=== PATIENT | female | born 1965 | race Caucasian/White ===

== ENCOUNTER 2020-02-12 08:37 | Outpatient (CLI) | payer OTHER, MEDICARE, SELFPAY ==
[2020-02-12 18:40] LABS: SARS-CoV-2 RNA PCR Negative
== END 2020-02-12 08:38 | disposition home or self-care (01) ==
LOC: ANHCOVIDDT 08:38
PROVIDERS: PCP Family Medicine; Visit Provider Orthopaedic Surgery
DX: Z01.812 Encounter for preprocedural laboratory examination (principal); Z20.828 Contact with and (suspected) exposure to other viral communicable diseases
CPT/HCPCS: 87635; C9803; U0003

== ENCOUNTER 2020-02-14 02:21 | Day surgery (SDC) | payer OTHER, MEDICARE, SELFPAY ==
[2019-12-13 13:44] VITALS: BMI 34.3
[2020-02-08 09:00] VITALS: BMI 31.8
--- NOTE | 2020-02-13 12:04 | WPDANESEPPF ---
Anes - Initial Pre Proc Eval Procedure: Operation Date: 02/14/20 07:30 Proposed Procedures p Bilateral Hallux Nail Removal - Dougie Munson MD Date/Time: 02/13/20 12:04 Surgeon: Dougie Munson MD Pre Op Diagnosis: Bilateral Hallux Onychomycosis [place] Toes Patient Data Age: 54 Gender: F Height: 5 ft 4 in Weight: 84 kg Allergies Allergy/AdvReac Type Severity Reaction Status Date / Time No Known Allergies Allergy Unknown Verified 02/06/20 11:35 Home Medications Medication Instructions Recorded Confirmed Type aspirin 81 mg tablet,delayed 81 mg PO DAILY 08/17/19 12/13/19 History release fluoxetine 40 mg capsule 120 mg PO DAILY 08/17/19 12/13/19 History gabapentin 300 mg capsule 900 mg PO TID cap 08/17/19 12/13/19 History venlafaxine 37.5 mg 37.5 mg PO DAILY 08/17/19 12/13/19 History capsule,extended release 24 hr acetaminophen [Tylenol Extra 500 mg PO Q6H PRN 12/13/19 12/13/19 History Strength] tapentadol [Nucynta ER] 100 mg PO BID 12/13/19 12/13/19 History ropinirole 6 mg tablet,extended 6 mg PO DAILY #30 tablet 01/17/20 02/08/20 Rx release 24 hr nitrofurantoin 100 mg PO BID #60 cap 01/28/20 02/08/20 Rx monohydrate/macrocrystals 100 mg capsule ibuprofen 800 mg tablet 800 mg PO TID #90 tablet 02/04/20 02/08/20 Rx carbamazepine [Tegretol XR] 400 mg PO Q12H 02/08/20 02/08/20 History Patient hx anesthesia problems: none Family hx anesthesia problems: none PMFSH Social History Social History Smoking status: Former smoker Second hand tobacco smoke exposure: No Smoking end date: 09/26/86 Alcohol intake: never Gender identity (if verbalized by the patient): Female Anes - Eval Final PreProcedure Day of Procedure 02/13/20 12:04 Patient weight: overweight Heart: regular rate and rhythm Lungs: clear to auscultation Airway: Mallampati scale class II Neurological: alert and oriented Last oral intake: >/= 8 hours ASA classification: III Emergent: no Anesthetic plan: proceed Anesthesia type and monitoring: general GIVS and standard monitoring Informed Consent: The patient's anesthetic plan and its attendant risks and benefits were discussed with the patient/family/POA. Questions were solicited and answers provided to the satisfaction of the patient/family/POA.
[2020-02-14 06:30] VITALS: BP 148/71; PULSE 79; RESP 16; TEMP 36.7; O2SAT 97
[2020-02-14] MEDS: LACTATED RINGERS 1,000 ML 30 ML IV CONT (06:50)
--- NOTE | 2020-02-14 06:51 | WPDHPUPDATE1 ---
History and Physical Update Update Date/Time: 02/14/20 06:51 History and Physical has been reviewed, including an updated exam of the patient. There are NO changes in the patient's condition. Risks, benefits, and alternatives have been discussed and questions answered. Patient agrees to proceed with procedure.
[2020-02-14] MEDS: ceFAZolin 2 GM/D5W 50 ML 2 GM/50 ML BAG IVPB (07:38)
[2020-02-14] MEDS: LIDOCAINE HCL 2% LOCAL INJ 20 ML VIAL INFILTRATE (07:56)
--- NOTE | 2020-02-14 08:11 | SUR.OPER ---
Ebl=5ml
[2020-02-14 08:17] VITALS: BP 120/62; PULSE 73; RESP 14; O2SAT 96
[2020-02-14 08:30] VITALS: BP 141/75; PULSE 72; RESP 14
[2020-02-14 09:00] VITALS: BP 159/90; PULSE 69; RESP 14
--- NOTE | 2020-02-14 09:26 | PM.PROC ---
Procedure Note - Detailed Date of procedure: 02/14/20 Pre-op diagnosis: Bilateral Hallux Onychomycosis To[place] Great Toes Post-op diagnosis: same Procedure performed: removal of toenail bilateral hallux Description of procedure: Indications: Patient is a 54-year-old woman with bilateral lower extremity neuropathy. Changes of the hallux toenail bilaterally consistent with fungal infection which is unrelieved with conservative care and antifungal medication. Presents for toenail removal. What was done: Patient identified in the preoperative holding. Informed consent given. Operative extremity marked. Patient received intravenous antibiotics. Patient brought to the operating room where underwent Sedation anesthetic by anesthesia team. Positioned supine on operating room table. Time-out performed confirming the patient, site of the surgery and the plan. right and left foot prepped and draped in usual sterile surgical fashion using a ChloraPrep skin solution. Left toenail addressed 1st. Local anesthetic with 0.5% Marcaine plain done at the base of the hallux. Point Clear elevator used to elevate the soft tissue from above and below the hallux toenail in the nail fold. Nail then grasped and removed. Loose tissue debrided with rongeur. Thorough irrigation. Sterile dressing with antibiotic ointment applied. Toenails of the lesser toes trimmed with nail trim. Right hallux toenail addressed 2nd. Local anesthetic with 0.5% Marcaine plain done at the base of the hallux. Point Clear elevator used to elevate the soft tissue from above and below the hallux toenail in the nail fold. Nail then grasped and removed. Loose tissue debrided with rongeur. Thorough irrigation. Sterile dressing with antibiotic ointment applied. Toenails of the lesser toes trimmed with nail trim. The patient was then woken from anesthesia, extubated and taken to the recovery room in stable condition. All sponge, needle, instrument counts were correct at the end of the case. Implants: 0 Anesthesia: MAC and local ( 0.5% Marcaine plain) Surgeon: Dougie Munson MD Estimated blood loss (mL): 5 Drains: No Packing: No Pathology: none sent Complications: None Condition: stable Disposition: PACU
[2020-02-14 09:30] VITALS: BP 145/77; PULSE 68; RESP 14
[2020-02-14 10:00] VITALS: BP 138/74; PULSE 72; RESP 14
--- NOTE | 2020-02-14 14:58 | SUR.PHASEII ---
1000 at side to assist with drsg..
[2020-02-20 16:14] LABS: Carbamazepine Tegretol 9.4 mcg/mL (4.0-12.0)
== END 2020-02-14 10:15 | disposition home or self-care (01) ==
PROVIDERS: PCP Family Medicine; Visit Provider Orthopaedic Surgery
PROC: 0HBRXZZ Excision of Toe Nail, External Approach (ICD-10-PCS; CPT 11750; principal; 2020-02-14 07:30)
DX: B35.1 Tinea unguium (principal); G62.9 Polyneuropathy, unspecified; I10 Essential (primary) hypertension; K21.9 Gastro-esophageal reflux disease without esophagitis; F41.8 Other specified anxiety disorders; D64.9 Anemia, unspecified; G47.30 Sleep apnea, unspecified; Z98.84 Bariatric surgery status; Z79.82 Long term (current) use of aspirin; Z86.718 Personal history of other venous thrombosis and embolism; Z87.891 Personal history of nicotine dependence
CPT/HCPCS: 11730; 11732; 36415; 80156; A9270; J0690; J2250; J2704; J3010; J7120

== ENCOUNTER → 2021-09-05 01:10 | Outpatient (CLI) | payer OTHER, MEDICARE, SELFPAY ==
[2021-09-05 20:10] LABS: SARS-CoV-2 RNA PCR Negative
== END ==
PROVIDERS: PCP Family Medicine; Visit Provider Internal Medicine Gastroenterology
DX: Z01.812 Encounter for preprocedural laboratory examination (principal); Z20.822 Contact with and (suspected) exposure to COVID-19
CPT/HCPCS: C9803; U0003; U0005

== ENCOUNTER 2021-09-09 01:05 | Day surgery (SDC) | payer OTHER, MEDICARE, SELFPAY ==
[2021-09-03 08:55] VITALS: BMI 36.0
--- NOTE | 2021-09-08 12:55 | PM.HPGS ---
History of Present Illness History of Present Illness Consent: Risks, benefits, and alternatives have been discussed and questions answered. Patient agrees to proceed with procedure. 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 Ankle fracture, left Anxiety Arthritis BMI 31.0-31.9,adult BMI 37.0-37.9, adult Cellulitis of toe, left Chronic anemia Depression Dialysis patient DVT (deep venous thrombosis) Endometriosis Gallbladder disease GERD (gastroesophageal reflux disease) HTN (hypertension) Onychomycosis of left great toe Onychomycosis of right great toe Ovarian cyst Peripheral neuropathy Recurrent UTI Screen for colon cancer Screening mammogram for high-risk patient Sleep apnea Trigger finger, left middle finger UTI (urinary tract infection) Surgical History Surgical History H/O left wrist surgery ORIF History of hysterectomy Hx of appendectomy Hx of cholecystectomy Hx of gastric bypass Family History Family History Father Cerebrovascular accident Mother Family history of malignant neoplasm of thyroid Sibling Family history of pancreatic cancer Other Diabetes mellitus Family history of malignant neoplasm Family history of malignant neoplasm of breast Family history of malignant neoplasm of male breast Hypertension Social History Social History Smoking packs per day: 1 Smoking cigarettes per day: 20.0 Years smoked: 8 Smoking pack-years: 8.00 Smoking status: Former smoker Tobacco type: cigarettes Second hand tobacco smoke exposure: No Smoking end date: 09/26/86 Additional smoking assessment comments: smoked for 8 years, started with 1pk/day by the end smoked 3pk/day Alcohol intake: never Substance use: never Substance use type: does not use Living arrangements: alone Gender identity (if verbalized by the patient): Female Spiritual care concerns: No Meds Home Medications and Allergies Home Medications Medication Instructions Recorded Confirmed Type fluoxetine 40 mg capsule 120 mg PO DAILY 08/17/19 09/09/21 History venlafaxine 37.5 mg 37.5 mg PO DAILY 08/17/19 09/09/21 History capsule,extended release 24 hr Nucynta ER 100 mg PO BID 12/13/19 09/09/21 History acetaminophen [Tylenol Extra 500 mg PO Q6H PRN 12/13/19 09/09/21 History Strength] nitrofurantoin 100 mg PO BID #60 cap 07/14/21 09/09/21 Rx monohydrate/macrocrystals 100 mg capsule carbamazepine 200 mg 400 mg PO Q12H #180 tablet 07/23/21 09/09/21 Rx tablet,extended release,12 hr gabapentin 300 mg capsule 900 mg PO TID #810 cap 09/02/21 09/09/21 Rx ibuprofen 800 mg PO TID 09/09/21 09/09/21 History ropinirole 6 mg PO DAILY 09/09/21 09/09/21 History Allergies Allergy/AdvReac Type Severity Reaction Status Date / Time No Known Allergies Allergy Unknown Verified 09/09/21 08:06 Exam Resp: Auscultation: clear to auscultation bilaterally Cardio: Rate: regular rate Rhythm: regular rhythm GI: GI Palp: Yes Soft to palpation and No Tenderness to palpation present (GI) Assessment and Plan Assessment and plan (1) Screen for colon cancer: Code(s): Z12.11 - Encounter for screening for malignant neoplasm of colon Status: Acute Assessment and Plan: Colonoscopy with possible biopsy or polypectomy or cautery or injection of substances.
[2021-09-09 08:08] VITALS: BP 144/80; PULSE 93; RESP 18; TEMP 36.1; O2SAT 97
[2021-09-09] MEDS: LACTATED RINGERS 1,000 ML 150 ML IV CONT (08:11)
--- NOTE | 2021-09-09 08:24 | WPDANESEPPF ---
Anes - Initial Pre Proc Eval Procedure: Operation Date: 09/09/21 09:45 Proposed Procedures p Screening Colonoscopy - Vish Pimentel MD Date/Time: 09/09/21 08:24 Surgeon: Vish Pimentel MD Pre Op Diagnosis: neoplasm screening Patient Data Age: 56 Gender: F Height: 1.63 m Weight: 99.9 kg Last Vital Signs Temp 36.1 C L 09/09/21 08:08 Pulse 93 09/09/21 08:08 Resp 18 09/09/21 08:08 BP 144/80 H 09/09/21 08:08 Pulse Ox 97 09/09/21 08:08 Allergies Allergy/AdvReac Type Severity Reaction Status Date / Time No Known Allergies Allergy Unknown Verified 09/09/21 08:06 Home Medications Medication Instructions Recorded Confirmed Type fluoxetine 40 mg capsule 120 mg PO DAILY 08/17/19 09/09/21 History venlafaxine 37.5 mg 37.5 mg PO DAILY 08/17/19 09/09/21 History capsule,extended release 24 hr Nucynta ER 100 mg PO BID 12/13/19 09/09/21 History acetaminophen [Tylenol Extra 500 mg PO Q6H PRN 12/13/19 09/09/21 History Strength] nitrofurantoin 100 mg PO BID #60 cap 07/14/21 09/09/21 Rx monohydrate/macrocrystals 100 mg capsule carbamazepine 200 mg 400 mg PO Q12H #180 tablet 07/23/21 09/09/21 Rx tablet,extended release,12 hr gabapentin 300 mg capsule 900 mg PO TID #810 cap 09/02/21 09/09/21 Rx ibuprofen 800 mg PO TID 09/09/21 09/09/21 History ropinirole 6 mg PO DAILY 09/09/21 09/09/21 History Patient hx anesthesia problems: none Family hx anesthesia problems: none Results Review: All pre-operative results and documents have been reviewed as part of the pre-operative evaluation. 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 Ankle fracture, left Anxiety Arthritis BMI 31.0-31.9,adult BMI 37.0-37.9, adult Cellulitis of toe, left Chronic anemia Depression Dialysis patient DVT (deep venous thrombosis) Endometriosis Gallbladder disease GERD (gastroesophageal reflux disease) HTN (hypertension) Onychomycosis of left great toe Onychomycosis of right great toe Ovarian cyst Peripheral neuropathy Recurrent UTI Screen for colon cancer Screening mammogram for high-risk patient Sleep apnea Trigger finger, left middle finger UTI (urinary tract infection) Surgical History Surgical History H/O left wrist surgery ORIF History of hysterectomy Hx of appendectomy Hx of cholecystectomy Hx of gastric bypass Family History Family History Father Cerebrovascular accident Mother Family history of malignant neoplasm of thyroid Sibling Family history of pancreatic cancer Other Diabetes mellitus Family history of malignant neoplasm Family history of malignant neoplasm of breast Family history of malignant neoplasm of male breast Hypertension Social History Social History Smoking packs per day: 1 Smoking cigarettes per day: 20.0 Years smoked: 8 Smoking pack-years: 8.00 Smoking status: Former smoker Tobacco type: cigarettes Second hand tobacco smoke exposure: No Smoking end date: 09/26/86 Additional smoking assessment comments: smoked for 8 years, started with 1pk/day by the end smoked 3pk/day Alcohol intake: never Substance use: never Substance use type: does not use Living arrangements: alone Gender identity (if verbalized by the patient): Female Spiritual care concerns: No Anes - Eval Final PreProcedure Day of Procedure 09/09/21 08:24 Patient weight: obese Heart: regular rate and rhythm Lungs: clear to auscultation Airway: Mallampati scale class II Neurological: alert and oriented Last oral intake: >/= 8 hours ASA classification: III Emergent: no Anesthetic plan: proceed Anesthesia type and monitoring: general GIVS and standard monitoring Results Review:
[2021-09-09 09:50] VITALS: BP 116/73; PULSE 86; RESP 20; O2SAT 96
[2021-09-09 10:00] VITALS: BP 124/84; PULSE 82; RESP 18; O2SAT 99
[2021-09-09 10:10] VITALS: BP 144/88; PULSE 78; RESP 18; O2SAT 99
== END 2021-09-09 10:26 | disposition home or self-care (01) ==
PROVIDERS: PCP Family Medicine; Visit Provider Internal Medicine Gastroenterology
PROC: 0DJD8ZZ Inspection of Lower Intestinal Tract, Via Natural or Artificial Opening Endoscopic (ICD-10-PCS; CPT 45378; principal; 2021-09-09 09:45)
DX: Z12.11 Encounter for screening for malignant neoplasm of colon (principal); F41.9 Anxiety disorder, unspecified; F32.A Depression, unspecified; Z99.2 Dependence on renal dialysis; Z86.718 Personal history of other venous thrombosis and embolism; K21.9 Gastro-esophageal reflux disease without esophagitis; I10 Essential (primary) hypertension; G62.9 Polyneuropathy, unspecified; G47.30 Sleep apnea, unspecified; Z90.49 Acquired absence of other specified parts of digestive tract; Z90.710 Acquired absence of both cervix and uterus; Z98.84 Bariatric surgery status; Z87.891 Personal history of nicotine dependence
CPT/HCPCS: 45378; J2704; J7120